=== PATIENT | female | born 1935 | race Caucasian/White ===

== ENCOUNTER 2016-08-20 17:59 | Emergency (ER) | payer MEDICARE ==
[~2016-08-20] VITALS: Ht 167.6 cm; Wt 90.5 kg
[~2016-08-20 17:59] MED LIST: ACET-784 PO; AMLO-512 PO; ASPI-1093 PO; DOCU-174 PO; DONE5TAB PO; FURO40 PO; HYDR1TAB PO; METF500T4 PO; PANT40TA25 PO; PARO-37 PO; TRIA-17 PO
[2016-08-20 21:40] VITALS: BP 155/90
== END 2016-08-20 21:55 | disposition home or self-care (01) ==
LOC: EMS 18:01
DX: R21 Rash and other nonspecific skin eruption (principal); E11.9 Type 2 diabetes mellitus without complications; E78.00 Pure hypercholesterolemia, unspecified; I10 Essential (primary) hypertension
CPT/HCPCS: 99283

== ENCOUNTER 2017-09-08 13:23 | Emergency (ER) | payer MEDICARE, OTHER ==
[~2017-09-08] VITALS: Ht 167.6 cm; Wt 109.5 kg
[~2017-09-08 13:23] MED LIST changes: -ASPI-1093 PO; +ASPI-1182 PO; -DOCU-174 PO; +DOCU100C34 PO; -DONE5TAB PO; +DONE5TAB5 PO
[2017-09-08 13:58] LABS: GLUCOSE,POINT OF CARE 164 MG/DL (70-110)
[2017-09-08] MEDS ORDERED: ACETAMINOPHEN 500 MG TABLET PO ONE (14:30)
[2017-09-08 16:01] VITALS: BP 138/90
== END 2017-09-08 16:52 | disposition home or self-care (01) ==
LOC: EMS 13:24
DX: F41.9 Anxiety disorder, unspecified (principal); G47.00 Insomnia, unspecified; R51 Headache; E11.9 Type 2 diabetes mellitus without complications; E78.00 Pure hypercholesterolemia, unspecified; I10 Essential (primary) hypertension; G89.29 Other chronic pain; Z79.82 Long term (current) use of aspirin
CPT/HCPCS: 82962; 99284

== ENCOUNTER 2018-09-27 18:05 | Emergency (ER) | payer MEDICARE, OTHER ==
[~2018-09-27] VITALS: Ht 154.9 cm; Wt 90.9 kg
[~2018-09-27 18:05] MED LIST changes: +METF-444 PO; -METF500T4 PO
[2018-09-27 18:56] VITALS: BP 161/82
[2018-09-27] MEDS ORDERED: POVIDONE-IODINE 10% 15 ML SOLUTION UD TP ONE (20:15)
[2018-09-27] MEDS ORDERED: ACETAMINOPHEN 325 MG TABLET PO ONE (20:15)
[2018-09-27] MEDS ORDERED: BACITRACIN 0.9 GM PACKET OINTMENT TP ONE (20:30)
== END 2018-09-27 22:01 | disposition home or self-care (01) ==
LOC: EMS 18:08
DX: S60.012A Contusion of left thumb without damage to nail, initial encounter (principal); E11.9 Type 2 diabetes mellitus without complications; E78.00 Pure hypercholesterolemia, unspecified; I10 Essential (primary) hypertension; G89.29 Other chronic pain; Z90.710 Acquired absence of both cervix and uterus; Z90.49 Acquired absence of other specified parts of digestive tract; Z79.899 Other long term (current) drug therapy; Z79.84 Long term (current) use of oral hypoglycemic drugs; Z79.82 Long term (current) use of aspirin; W19.XXXA Unspecified fall, initial encounter; Y93.89 Activity, other specified; Y92.89 Other specified places as the place of occurrence of the external cause; Y99.8 Other external cause status